=== PATIENT | male | born 1940 ===

== ENCOUNTER 2018-07-14 10:38 | Observation (INO) | payer MEDICARE, OTHER ==
[2018-07-14 11:16] LABS: BASO # 0.07 K/mm3 (0.0-2.0); BASO % 0.8 % (0.0-3.0); EOS # 0.3 (0.0-0.7); EOS % 3.7 % (1.5-5.0); HEMOGLOBIN 10.9 g/dL (14.0-18.0); LYMPH # 2.8 (1.2-3.4); LYMPH % 31.5 % (22.0-35.0); MEAN CELL VOLUME 75.2 fl (80.0-105.0); MEAN CORPUSCULAR HEMOGLOBIN 23.1 pg (25.0-35.0); MEAN CORPUSCULAR HGB CONC 30.7 g/dl (31.0-37.0); MEAN PLATELET VOLUME 9.4 fl (7.0-11.0); MONO # 0.6 (0.1-0.6); MONO % 6.5 % (1.0-6.0); RBC 4.72 10^6/uL (3.5-6.1); RED CELL DISTRIBUTION WIDTH 17.1 % (11.5-14.5)
[2018-07-14 11:25] LABS: ALB/GLOB RATIO 1.4 (1.1-1.8); ALBUMIN 4.9 g/dL (3.0-4.8); ALT/SGPT 19 U/L (7-56); AST/SGOT 35 U/L (17-59); BLOOD UREA NITROGEN 20 mg/dL (7-21); GFR NON-AFRICAN AMERICAN 58
--- NOTE | 2018-07-14 11:29 | RAD ---
Date of service: 07/14/2018 HISTORY: cp COMPARISON: 09/22/2017 FINDINGS: LUNGS: No active pulmonary disease. PLEURA: No significant pleural effusion identified, no pneumothorax apparent. CARDIOVASCULAR: No aortic atherosclerotic calcification present. Normal cardiac size. No congestive change. AICD. OSSEOUS STRUCTURES: No significant abnormalities. VISUALIZED UPPER ABDOMEN: Normal. OTHER FINDINGS: None. IMPRESSION: No active disease.
[2018-07-14 11:37] LABS: B-TYPE NATRIURETIC PEPTIDE 158 pg/mL (0-450); TROPONIN I < 0.01 ng/mL
[2018-07-14] MEDS ORDERED: Magnesium Sulfate 1 gm in D5W 1 GM/100 ML BAG IVPB ONE (11:50)
--- NOTE | 2018-07-14 11:56 | ED PDOC ---
Arrival/HPI - General Chief Complaint: Chest Pain Time Seen by Provider: 07/14/18 10:46 Historian: Patient - History of Present Illness Narrative History of Present Illness (Text): 07/14/18 11:53 A 77 year old male, whose past medical history includes diabetes, CAD, s/p cardiac stents presents to the emergency department complaining of burning chest pain for 1 week. Current severity of pain is 4/10. Patient reports he experienc es the pain only when ambulating; as he lays down he feels normal. Also, patient's daughter notes patient was experiencing shortness of breath as well, and gave patient Lasix 2 days ago. Daughter also restarted the patient on Effient after it had been d/c'd by his doctor. Patient normally does not take his Lasix, as afterwards he would begin having bilateral leg cramping. Patient notes also having intermittent anterior neck pain associated with chest pain. He denies dizziness, syncope, cough, nausea, abdominal pain, vomiting, diarrhea, or any other complaints at this time. Patient took a baby aspirin at home today. PMD: Dr. Champion Schedule Maker: Dr. Temple Past Medical History - Provider Review Nursing Documentation Reviewed: Yes - Infectious Disease Hx of Infectious Diseases: None - Tetanus Immunization Tetanus Immunization: Unknown - Cardiac Hx Cardiac Disorders: Yes (cp/cardiomuopathy) Hx Angina: Yes Hx Hypertension: Yes Hx Internal Defibrillator: Yes Other/Comment: pt denies any hx of dvt - Pulmonary Hx Chronic Obstructive Pulmonary Disease (COPD): Yes - Neurological Hx Neurological Disorder: No - HEENT Hx HEENT Disorder: (WEARS RX GLASSES, for reading) - Renal Hx Renal Disorder: No - Endocrine/Metabolic Hx Diabetes Mellitus Type 2: Yes - Hematological/Oncological Hx Anemia: Yes - Integumentary Hx Dermatological Disorder: No - Musculoskeletal/Rheumatological Hx Arthritis: Yes (neck and lower back) Hx Falls: No - Gastrointestinal Hx Gastrointestinal Disorders: Yes (HEMORRHOIDS) Hx Gastroesophageal Reflux: Yes - Genitourinary/Gynecological Hx Genitourinary Disorders: No - Psychiatric Hx Emotional Abuse: No Hx Physical Abuse: No Hx Substance Use: No - Surgical History Hx Cardiac Catheterization: Yes (x15/ptca) Hx Coronary Stent: Yes Other/Comment: vasectomy over 45 yrs ago, cardiac cath, right grreat toe bunyon sx with screw insertion and removal over 20 yrs ago - Anesthesia Hx Anesthesia: Yes Hx Anesthesia Reactions: No Hx Malignant Hyperthermia: No - Suicidal Assessment Feels Threatened In Home Enviroment: No Family/Social History - Physician Review Nursing Documentation Reviewed: Yes Family/Social History: No Known Family HX Smoking Status: Former Smoker Hx Alcohol Use: No Hx Substance Use: No Hx Substance Use Treatment: No Allergies/Home Meds Allergies/Adverse Reactions: Allergies No Known Allergies Allergy (Verified 06/19/16 07:05) Home Medications: Home Meds Medication Instructions Recorded Confirmed Aspirin [Aspirin EC] 81 mg PO BID 01/13/15 07/14/18 Prasugrel [Effient] 10 mg PO QAM 01/13/15 07/14/18 Atorvastatin [Lipitor] 10 mg PO HS 12/01/15 07/14/18 Ranolazine [Ranexa] 1 tab PO BID 12/01/15 07/14/18 Sitagliptin Phos/Metformin HCl 50 mg PO BID 06/19/16 07/14/18 [Janumet 50-1,000 mg Tablet] Furosemide [Lasix] 20 mg PO DAILY 09/26/17 07/14/18 Carvedilol [Coreg] 6.25 mg PO BID 07/14/18 07/14/18 Review of Systems - Physician Review All systems were reviewed & negative as marked: Yes - Review of Systems ENT: Other (throat pain associated with chest pain.) Respiratory: SOB, Cough Cardiovascular: Chest Pain (burning sensation) Gastrointestinal: absent: Diarrhea, Nausea, Vomiting Physical Exam Vital Signs Reviewed: Yes Vital Signs Temp Pulse Pulse Resp BP BP Pulse Ox 07/14/18 11:00 74 127/62 07/14/18 10:38 97.5 F L 78 20 145/60 98 Temperature: Afebrile Blood Pressure: Normal Pulse: Regular Respiratory Rate: Normal Appearance: Positive for: Well-Appearing, Non-Toxic, Comfortable Pain Distress: None Mental Status: Positive for: Alert and Oriented X 3 - Systems Exam Head: Present: Atraumatic, Normocephalic Pupils: Present: PERRL Extroacular Muscles: Present: EOMI Conjunctiva: Present: Normal Mouth: Present: Moist Mucous Membranes Neck: Present: Normal Range of Motion Respiratory/Chest: Present: Clear to Auscultation, Good Air Exchange. No: Respiratory Distress, Accessory Muscle Use Cardiovascular: Present: Regular Rate and Rhythm, Normal S1, S2. No: Murmurs Abdomen: No: Tenderness, Distention, Peritoneal Signs Back: Present: Normal Inspection Upper Extremity: Present: Normal Inspection. No: Cyanosis, Edema Lower Extremity: Present: Normal Inspection. No: Edema Neurological: Present: GCS=15, CN II-XII Intact, Speech Normal Skin: Present: Warm, Dry, Normal Color. No: Rashes Psychiatric: Present: Alert, Oriented x 3, Normal Insight, Normal Concentration Medical Decision Making ED Course and Treatment: 07/14/18 11:57 Impression: 77 year old male with burning chest pain. Plan: -- EKG -- Chest X-ray -- Labs -- Urinalysis -- Aspirin -- Reassess and disposition Progress Notes: EKG: Ordered, reviewed, and independently interpreted the EKG. Rate : 84 BPM Rhythm : NSR Interpretation : Normal intervals, Right Bundle Branch Block. Comparison : No change from previous EKG on 09/22/2017. 07/14/18 11:[address] Champion, who states to have patient admitted for observation, and to have Dr. Temple called for cardiology consultation. 07/14/2018 11:25 Chest X-ray IMPRESSION: No active disease. Dictator: Kristian Magana MD - Lab Interpretations Lab Results: Troponin I < 0.01 ng/mL 07/14/18 11:00 NT-Pro-B Natriuret Pep 158 pg/mL (0-450) 07/14/18 11:00 Total Bilirubin 0.6 mg/dL (0.2-1.3) 07/14/18 11:00 AST 35 U/L (17-59) 07/14/18 11:00 ALT 19 U/L (7-56) 07/14/18 11:00 Alkaline Phosphatase 53 U/L (38-126) 07/14/18 11:00 Total Protein 8.3 g/dL (5.8-8.3) 07/14/18 11:00 Albumin 4.9 g/dL (3.0-4.8) H 07/14/18 11:00 Globulin 3.4 gm/dL 07/14/18 11:00 Albumin/Globulin Ratio 1.4 (1.1-1.8) 07/14/18 11:00 - RAD Interpretation Radiology Orders: 07/14/18 10:57 CHEST PORTABLE [RAD] Stat - Medication Orders Current Medication Orders: Aspirin (Aspirin Chewable) 81 mg PO STAT STA Stop: 07/14/18 11:39 Last Admin: 07/14/18 11:43 Dose: 81 mg Discontinued Medications Aspirin (Aspirin Chewable) 81 mg PO STAT STA Stop: 07/14/18 11:25 Last Admin: 07/14/18 11:42 Dose: 81 mg - Scribe Statement The provider has reviewed the documentation as recorded by the Med Day Provider Scribe Attestation: All medical record entries made by the Med were at my direction and personally dictated by me. I have reviewed the chart and agree that the record accurately reflects my personal performance of the history, physical exam, medical decision making, and the department course for this patient. I have also personally directed, reviewed, and agree with the discharge instructions and disposition. Disposition/Present on Arrival - Present on Arrival Any Indicators Present on Arrival: No History of DVT/PE: No History of Uncontrolled Diabetes: No Urinary Catheter: No History of Decub. Ulcer: No History Surgical Site Infection Following: None - Disposition Have Diagnosis and Disposition been Completed?: Yes Diagnosis: Chest pain Disposition: HOSPITALIZED Disposition Time: 11:55 Patient Plan: Observation, Telemetry Patient Problems: Current Active Problems Problem Status Onset Chest pain Acute Condition: STABLE
--- NOTE | 2018-07-14 12:10 | CARD ---
APPROVED REPORT Date of service: 07/14/2018 EKG Measurement Heart [id number] <Conclusion> Normal sinus rhythm Right bundle branch block Cannot rule out Anterior infarct, age undetermined Abnormal ECG
[2018-07-14 12:45] VITALS: BMI 24.6
[2018-07-14] MEDS ORDERED: Enoxaparin 80 mg Syringe SC ONE ×2 (12:55→22:00)
--- NOTE | 2018-07-14 15:10 | CON ---
DATE OF CONSULTATION: 07/14/2018 HISTORY: The patient is a 77-year-old male, who presents with new recurrence of angina, which is focal in nature. The patient has documented multivessel CAD with multiple stents in the past. In addition, he suffers from diabetes mellitus and hypercholesterolemia. He suffers from ischemic dilated cardiomyopathy with an EF of approximately 25% and has been stable for the past 2 years with a cardiac risk reduction program and exercise. SOCIAL HISTORY: The patient does not smoke. REVIEW OF SYSTEMS: None in addition to the present. PHYSICAL EXAMINATION: GENERAL: The patient is in no acute distress. VITAL SIGNS: Blood pressure is 134/76, the heart rate is in the 70s. NECK: Negative JVD. LUNGS: Without rales. CARDIAC: Heart rate S1, S2. EXTREMITIES: Without edema. LABORATORY DATA: EKG shows nonspecific ST-T changes. Hemoglobin is 10.9. Chemistries, BUN and creatinine normal. The first troponin is negative. Glucose 137. IMPRESSION: 1. Recurrence of chest pain. 2. No evidence for acute coronary syndrome so far. 3. Stable angina. 4. History of multivessel coronary artery disease. 5. Ischemic dilated cardiomyopathy with an ejection fraction of 25%. 6. Diabetes mellitus. 7. Hypercholesterolemia. PLAN: Given these findings, we will continue the patient on aspirin, Effient was started at home. We will change his heparin to subcu Lovenox. Kristian Temple MD
[2018-07-14 15:18] LABS: URINE BILIRUBIN NEGATIVE (NEGATIVE); URINE BLOOD NEGATIVE (NEGATIVE); URINE GLUCOSE (UA) NEGATIVE (NEGATIVE); URINE LEUKOCYTE ESTERASE NEGATIVE Leu/uL (NEGATIVE); URINE PROTEIN NEGATIVE mg/dL (<30 mg/dL); URINE UROBILINOGEN 0.2 E.U./dL (<1 E.U./dL)
[2018-07-14 15:22] LABS: URINE APPEARANCE CLEAR (CLEAR); URINE COLOR YELLOW (YELLOW)
[2018-07-14] MEDS ORDERED: Influenza Vaccine 60 mcg/0.5 mL SYR (4YR UP) IM ONE (17:14)
[2018-07-14] MEDS ORDERED: Pneumococcal 23-Valent Vaccine IM ONE (17:14)
[2018-07-14] MEDS ORDERED: SITAGLIPTIN PHOS PO SCH (18:00)
[2018-07-14] MEDS ORDERED: METFORMIN HCL PO SCH (18:00)
[2018-07-14] MEDS ORDERED: [UNRECOGNIZED DRUG - OTHER] PO SCH (18:00)
--- NOTE | 2018-07-14 22:28 | HP ---
DATE OF EXAM: 07/14/2018 HISTORY OF PRESENT ILLNESS: He came to the emergency room with chest pain for about a week. It happens worse when there is any kind of exercise, any kind of exertion, when he is resting he feels a lot better. He has a shortness of breath also. He has increased the Lasix to twice a day. He was started on Effient on the outpatient. He is normally not taken his Lasix from when he was here. He did get bilateral leg cramping from times to time. I will check a magnesium level. He is 77-year-old white man with history of diabetes, CAD status post cardiac stents and now he is having chest pain and pressure for about a week. His skidder runner is Dr. Temple. He has had chest pain, cardiomyopathy, angina, hypertension, defibrillator. No history of DVT. He has COPD. He wears glasses, diabetes, anemia. He has arthritis in the neck and lower back, hemorrhoids, reflux. He had cardiac cath in 03/16, PTCA. He has coronary stents, vasectomy 4 to 5 years ago, cardiac cath, right great toe bunion surgery with screw insertion removal 20 years ago. ALLERGIES: NO KNOWN DRUG ALLERGIES. MEDICATIONS: He is on aspirin, Effient, Lipitor, Ranexa, metformin, Lasix, Coreg. FAMILY HISTORY: No known family history. SOCIAL HISTORY: Former smoker. No alcohol. No drugs. REVIEW OF SYSTEMS: No acute vision or hearing changes. No sore throat. He does have shortness of breath and coughing. He does have chest pain and burning sensation in the abdomen. He does have chest pressure. No nausea, vomiting or diarrhea. He does have no skin issues. PHYSICAL EXAMINATION: GENERAL: He is well appearing, nontoxic, comfortable, alert and oriented x3 at rest. VITAL SIGNS: He has a 97.5 temperature, 74 pulse 74, 20 respiratory rate, blood pressure 127/62 blood pressure, 98% O2 sat. HEENT: Head is normocephalic, atraumatic. Pupils are equal, reactive to light. Extraocular muscles are intact. Throat is moist. NECK: Supple. No JVD. Thyroid midline. HEART: Regular rate. Normal S1, S2. LUNGS: Decreased breath sounds, but clear to auscultation. No wheezes. No rhonchi. No rales. ABDOMEN: Soft, nontender. Positive bowel sounds. He does have some indigestion and some issues, I am going to put him on some Protonix. No edema of the lower extremities at this time. NEUROLOGIC: GCS is 15. Cranial nerves II through XII grossly intact. Normal speech. Alert and oriented x3. SKIN: Warm and dry. No rashes. LABORATORY DATA: He had multiple tests done. Chest x-ray showed no acute disease. EKG shows normal sinus rhythm, cannot rule out anterior infarct. He has a 9 white count, 10.9 hemoglobin, 35.5 hematocrit with 215 platelets. He has sodium 138, potassium 3.9, BUN 20, creatinine 1.2, GFR is 58, sugar is 137, calcium 10, magnesium 1.3. Total bili is 0.6, AST is 35, ALT is 19, alk phos 53. Lactate dehydrogenase is 452. Troponin I is less than 0.01 x2. BNP is 158, total protein is 8.3. Magnesium was low 1.3. Urine was clean. IMPRESSION AND PLAN: We have a consult with Dr. Temple, the skidder runner. I will put him back on some of his medications, carvedilol, aspirin, Effient. I am going to hold the metformin want to do a cardiac cath on him. He has Januvia. I will also stop the Lasix. His BMP was good. He is not having any edema. He is on Lipitor, Lovenox. He was given magnesium in the emergency room. He is on Ranexa and Zestril. We will check his labs tomorrow. Finish off the troponins and see what Dr. Temple wants to do. He is here for recurrent chest pain, stable angina, history of coronary artery disease, history of ischemic dilated cardiomyopathy with ejection fraction of 25%, diabetes, high cholesterol, low magnesium. We will check his labs tomorrow. He will be on observation level of care. Jamil Champion DO [facility]
[2018-07-15 06:21] LABS: HEMOGLOBIN 10.2 g/dL (14.0-18.0); MEAN CORPUSCULAR HEMOGLOBIN 22.9 pg (25.0-35.0); MEAN CORPUSCULAR HGB CONC 30.9 g/dl (31.0-37.0); MEAN PLATELET VOLUME 9.3 fl (7.0-11.0); RBC 4.46 10^6/uL (3.5-6.1); RED CELL DISTRIBUTION WIDTH 17.2 % (11.5-14.5)
[2018-07-15 06:40] LABS: ALB/GLOB RATIO 1.3 (1.1-1.8); ALBUMIN 4.2 g/dL (3.0-4.8); ALT/SGPT 25 U/L (7-56); AST/SGOT 41 U/L (17-59); BLOOD UREA NITROGEN 17 mg/dL (7-21); CALCIUM 9.5 mg/dL (8.4-10.5); GFR NON-AFRICAN AMERICAN > 60
[2018-07-15] MEDS ORDERED: Magnesium Sulfate 2 gm/50 ml 2 GM/50 ML BAG IVPB ONE (07:36)
--- NOTE | 2018-07-15 08:15 | DS ---
HISTORY OF PRESENT ILLNESS: He came in with chest pain. He is comfortable right now. He is feeling better. No more chest pain. He is in good spirits. He was seen by Dr. Temple, grappler. PHYSICAL EXAMINATION: VITAL SIGNS: He has a 97.6 temperature, 68 pulse, 122/69 blood pressure, 18 respiratory rate, 97% O2 sat on room air. HEENT: Head is atraumatic, normocephalic. HEART: Regular rate. LUNGS: Decreased breath sounds, but clear. ABDOMEN: Soft. EXTREMITIES: No edema. MEDICATIONS: He is currently on Coreg, Ecotrin, Effient, Januvia, Lipitor, Ranexa and Zestril, those medications he will be on. LABORATORY DATA: He has a urine which was clean. Sodium 138, potassium 3.7, BUN 70, creatinine 1.1, GFR is greater than 60, sugar is 144, calcium 9.5, magnesium 1.4. Total bili is 0.6, AST is 41, ALT is 25, alk phos 54. All three troponins are less than 0.01. Total protein 7.4. White count is 9, hemoglobin 10.2, hematocrit 33, platelets of 209. ASSESSMENT AND PLAN: He will be discharged today for outpatient followup. He will go back on his regular medications that he takes at home. No changes in his medications from his home medication list chest pain and observation. Jamil Champion DO [facility]
[2018-07-15] MEDS: RANOLAZINE 500 MG PO SCH ×2 (10:10→17:10)
[2018-07-15] MEDS ORDERED: Iodixanol 320 MG/ML 200 ML BOTTLE IV ONE (14:50)
[2018-07-15] MEDS ORDERED: Lidocaine 2% Inj (20ml) ONE (14:50)
[2018-07-15] MEDS ORDERED: Iohexol 350mgl/ml 50 ML ONE (14:50)
[2018-07-15] MEDS ORDERED: Iodixanol 320 MG/ML 100 ML BOTTLE IV ONE (14:50)
[2018-07-15] MEDS ORDERED: Midazolam 2 MG/2 ML VIAL ONE ×2 (15:00→15:04)
[2018-07-15] MEDS ORDERED: Sodium Chloride 0.9% 1,000 ML IV SCH (15:30)
--- NOTE | 2018-07-15 18:42 | CARDCATH ---
PROCEDURE DATE: 07/15/2018 HISTORY: The patient is a 77-year-old male with a history of multivessel CAD, who presents with recurrence of angina. Because of this, a cardiac catheterization was recommended. PROCEDURE: Left heart catheterization with coronary arteriography and left ventriculogram with supra-aortic valvular injection. The right femoral artery was cannulated with 6-[place] sheath. There were no complications. I performed moderate sedation, which included the presence of an independent trained observer that assisted in monitoring the patient's level of consciousness and physiologic status. After administration of Versed and fentanyl, my intra service time was 15 minutes. The findings on catheterization revealed a left ventricle that was globally hypokinetic with an estimated ejection fraction of 30% to 35%. His coronary anatomy revealed a right dominant circulation. The RCA revealed diffuse atherosclerosis throughout its course with a patent stent in the RCA. The left main artery was unremarkable. The LAD revealed multiple stents throughout its course and it was occluded in its midportion representing an in-stent restenosis, which is chronic. The circumflex artery revealed diffuse atherosclerosis with 40% to 50% stenoses and patent stents noted. Supra-aortic valvular injection revealed no aortic insufficiency. Manual compression was used to close the femoral artery site. The patient tolerated the procedure well. In summary, the procedure revealed single-vessel CAD, which is a chronically occluded mid LAD. The rest of his coronary anatomy revealed no changes from his previous including patent stents in the circumflex artery and RCA. LV function was globally hypokinetic with an estimated ejection fraction of 30% to 35%. Given these findings, the patient's coronary anatomy is unchanged from his previous. We will continue his current medical therapy. We will discontinue his Effient. Kristian Temple MD
[2018-07-16 01:06] VITALS: RESP 17
[2018-07-16 05:42] VITALS: TEMP 97.9; O2SAT 99
[2018-07-16 09:09] VITALS: BP 130/76; PULSE 67
--- NOTE | 2018-07-16 14:01 | PN ---
DATE: 07/16/2018 CARDIOLOGY FOLLOWUP SUBJECTIVE: The patient is asymptomatic post cardiac catheterization. PHYSICAL EXAMINATION VITAL SIGNS: Blood pressure is 130/76, heart rates in the 60s. NECK: Negative JVD. LUNGS: Without rales. HEART: Reveals S1, S2. EXTREMITIES: Without edema. The groin site is stable. LABORATORY DATA: Hemoglobin is 10.2, BUN and creatinine are unremarkable. The glucose is 144. IMPRESSION 1. Status post catheterization, which shows no change in his anatomy. 2. Chronically occluded left anterior descending artery. 3. Ischemic dilated cardiomyopathy with an ejection fraction of 30-35%. 4. Diabetes mellitus. 5. Hypercholesterolemia. Given these findings, the patient is doing well. The patient can be discharged today. Followup instructions have been given to the patient in detail. Kristian Temple MD
--- NOTE | 2018-07-16 21:43 | DS ---
HISTORY OF PRESENT ILLNESS: He had a cardiac cath last night. Dr. Temple wanted to watch him overnight. He is going to home on his medications that he came in with. He is going to home on his aspirin, Coreg, Effient, Janumet, Lasix, Lipitor, Ranexa and Zestril. He is comfortable. No chest pain. No shortness of breath. No abdominal pain. He is walking okay. PHYSICAL EXAMINATION: VITAL SIGNS: He has a 97.9 temperature, 61 pulse, 126/60 blood pressure, 17 respiratory rate, 99% O2 on room air. HEENT: Head is atraumatic, normocephalic. HEART: Regular rate. LUNGS: Decreased breath sounds, but clear. ABDOMEN: Soft. EXTREMITIES: No edema. LABORATORY DATA: He has a 9 white count, 10.2 hemoglobin, 33 hematocrit, 209 platelets. Sodium 138, potassium 3.7, BUN 17, creatinine 1.1, GFR is greater than 60, blood sugar is AST is 41, ALT is 25, alk phos is 43, troponin is less than 0.01, total protein is 7.4 ASSESSMENT AND PLAN: He had a cardiac cath and was fine and will be discharged in a week. Jamil Champion DO MTDD
== END 2018-07-16 11:23 | disposition home or self-care (01) ==
LOC: ED 10:38 → ERH 11:58 → 2RNO 14:20 → 2RSO 07-15 15:06
PROVIDERS: ADMIT Family Medicine; ATTEND Family Medicine
DX: I25.118 Atherosclerotic heart disease of native coronary artery with other forms of angina pectoris (principal); T82.855A Stenosis of coronary artery stent, initial encounter; I25.82 Chronic total occlusion of coronary artery; I10 Essential (primary) hypertension; I42.0 Dilated cardiomyopathy; I25.5 Ischemic cardiomyopathy; E11.9 Type 2 diabetes mellitus without complications; E78.00 Pure hypercholesterolemia, unspecified; D64.9 Anemia, unspecified; J44.9 Chronic obstructive pulmonary disease, unspecified; K21.9 Gastro-esophageal reflux disease without esophagitis; M19.90 Unspecified osteoarthritis, unspecified site; K64.9 Unspecified hemorrhoids; Y83.1 Surgical operation with implant of artificial internal device as the cause of abnormal reaction of the patient, or of later complication, without mention of misadventure at the time of the procedure; Z87.891 Personal history of nicotine dependence; Z79.84 Long term (current) use of oral hypoglycemic drugs; Z79.82 Long term (current) use of aspirin; Z79.02 Long term (current) use of antithrombotics/antiplatelets
CPT/HCPCS: 36415; 71045; 80053; 81003; 82550; 82948; 83615; 83735; 83880; 84484; 85025; 85027; 87086; 93005; 93458; 96372; 99152; 99153; 99283; C1760; C1769; C2629; G0378; J1644; J1650; J2250; J3010; J3475; J7030; Q9966